=== PATIENT | male | born 1990 | race Caucasian/White ===

== ENCOUNTER 2018-07-24 01:15 | Emergency (ER) | payer OTHER ==
--- NOTE | 2018-07-24 03:14 | EDPHY ---
H & P Stated Complaint: CYST ON TAILBONE,NEEDS DRAINED/RECURRING Time Seen by Provider: 07/24/18 02:18 HPI/ROS: Chief Complaint: Cyst on tailbone HPI: 28-year-old male with a history of pilonidal abscess times for the past is presenting with pain in the pilonidal region with swelling for the last 2 days. He has had surgical drainage in the past. Has not seen a surgeon since his last 1 which was 4 years ago. ROS: 10 systems were reviewed and were negative except those elements noted in the HPI. PMH: Pilonidal abscess Social History: No smoking, occasional alcohol Family History: non-contributory Physical Exam: Gen: Awake, Alert, No Distress HEENT: Nose: no rhinorrhea Eyes: PERRLA, EOMI Mouth: Moist mucosa Neck: Supple, no JVD Chest: nontender, lungs clear to auscultation Heart: S1, S2 normal, no murmur Abd: Soft, non-tender, no guarding Back: no CVA tenderness, no midline tenderness patient has a large pilonidal abscess which is fluctuant and pointing Ext: no edema, non-tender Skin: no rash Neuro: CN II-XII intact, Sensation grossly intact, Strength 5/5 in bilateral upper and lower extremities - Personal History Current Tetanus Diphtheria and Acellular Pertussis (TDAP): Yes - Medical/Surgical History Hx Asthma: No Hx Chronic Respiratory Disease: No Hx Diabetes: No Hx Cardiac Disease: No Hx Renal Disease: No Hx Cirrhosis: No Hx Alcoholism: No Hx HIV/AIDS: No Hx Splenectomy or Spleen Trauma: No Other PMH: RECURRING CYST - Social History Smoking Status: Heavy smoker Constitutional: Initial Vital Signs Temperature (C) 37.0 C 07/24/18 01:24 Heart Rate 95 07/24/18 01:24 Respiratory Rate 16 07/24/18 01:24 Blood Pressure 142/83 H 07/24/18 01:24 O2 Sat (%) 96 07/24/18 01:24 O2 Delivery Mode Room Air Allergies/Adverse Reactions: No Known Allergies Allergy (Unverified 07/24/18 01:26) Home Medications: Medication Instructions Recorded Hydrocodone/Acetaminophen 1 - 2 each PO Q4-6PRN PRN #10 07/24/18 [Hydrocodon-Acetaminophen 5-325] tablet Medical Decision Making Procedures: Procedure: Abscess drainage. The patient's abscess was located on the pilonidal region. I obtained verbal consent from the patient to drain the abscess who was informed about the possibility of bleeding and pain. The abscess was incised with 11 blade scalpel and a large amount of purulent drainage was expressed. I irrigated the wound and placed some packing. The patient tolerated the procedure well. The procedure was performed by myself. - Data Points Medications Given: Discontinued Medications Hydrocodone Bitart/Acetaminophen ([place] 5/325mg Prepack#6) 1 btl TAKEHOME EDNOW ONE Stop: 07/24/18 03:23 Last Admin: 07/24/18 03:52 Dose: 1 btl Departure - Departure Disposition: Home, Routine, Self-Care Clinical Impression: Pilonidal abscess Condition: Good Instructions: Hydrocodone/Acetaminophen (By mouth), Pilonidal Cyst (ED) Additional Instructions: Follow up with a general surgeon in 2-3 days for further evaluation. The packing in place for 2-3 days. You may take hydrocodone with acetaminophen as needed for pain. Return for increasing pain, redness, swelling, fevers, chills, or any other concerns. Referrals: Wally Estrada MD [Medical Doctor] - As per Instructions Prescriptions: Hydrocodone/Acetaminophen [Hydrocodon-Acetaminophen 5-325] 1 - 2 each PO Q4- 6PRN PRN #10 tablet PRN Reason: Pain, Severe
[2018-07-24] MEDS ORDERED: HYDROCOD/APAP 5/325 PREPACK#6 BTL TAKEHOME ONE (03:22)
[2018-07-24 03:54] VITALS: BP 137/89
== END 2018-07-24 03:52 | disposition home or self-care (01) ==
PROC: 0H98XZZ Drainage of Buttock Skin, External Approach (ICD-10-PCS; principal; 2018-07-24)
DX: L05.91 Pilonidal cyst without abscess (principal); F17.200 Nicotine dependence, unspecified, uncomplicated